=== PATIENT | female | born 2000 | race Caucasian/White ===

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

== ENCOUNTER 2022-03-04 23:26 | Emergency (ER) | payer MEDICAID ==
[~2022-03-04] VITALS: Ht 165.1 cm; Wt 109.1 kg
[~2022-03-04 23:26] MED LIST: CRUTCHES MC; FLEXERIL 1010 MG/TAB PO
[2022-03-05 00:13] VITALS: TEMP 97.7
[2022-03-05 01:10] LABS: BASO # 0.1 K/mm3 (0.0-0.2); BASO % 0.6 % (0.0-2.0); EOS # 0.1 K/mm3 (0.0-0.7); EOS % 1.4 % (0.0-4.0); GRAN # 7.2 K/mm3 (1.4-6.5); GRAN % 69.3 % (42.2-75.2); HEMATOCRIT 39.7 % (35.0-45.0); HEMOGLOBIN 12.9 g/dl (12.0-15.0); MEAN CELL VOLUME 85 fl (80.0-95.0); MEAN CORPUSCULAR HEMOGLOBIN 27 pg (26-32); MEAN CORPUSCULAR HGB CONC 33 g/dl (33.0-37.0); MEAN PLATELET VOLUME 8.8 fl (7.4-10.4); MONO % 9.3 % (1.7-9.3); PLATELET COUNT 417 K/mm3 (130-400); REDCELL DISTRIBUTION WIDTH-CV 14.2 % (11.5-14.5)
[2022-03-05 01:28] LABS: ALBUMIN 3.9 gm/dL (3.5-5.0); BILIRUBIN,TOTAL 0.3 mg/dL (0.2-1.2); CALCIUM 9.4 mg/dL (8.4-10.2); CREATININE, serum 0.7 mg/dL (0.57-1.11)
[2022-03-05 02:40] VITALS: BP 130/81; PULSE 90
== END 2022-03-05 02:39 | disposition home or self-care (01) ==
LOC: COL.ER 23:26
PROVIDERS: Physician Assistant
DX: R51.9 Headache, unspecified (principal); R53.83 Other fatigue; R53.1 Weakness
CPT/HCPCS: J0780; J7030